=== PATIENT | male | born 1955 | race Caucasian/White ===

== ENCOUNTER 2024-05-07 14:44 | Emergency (ER) | payer OTHER ==
[2024-05-07 15:56] LABS: O2 DELIVERY DEVICE ROOM AIR
[2024-05-07 15:59] LABS: BICARBONATE,VENOUS 32 mmol/l (19-25); O2 SATURATION VENOUS 80.7 % (60-80); PCO2 VENOUS 52 mmHg (41-51); PO2 VENOUS 49 mmHg (35-42)
[2024-05-07 16:00] LABS: BASE EXCESS VENOUS 5.9 mmol/l ((-2)-(+3)); BASOPHILS PERCENT AUTO 0.3 % (0.0-1.0); EOSINOPHILS PERCENT AUTO 0.4 % (1.0-3.0); HEMATOCRIT 43.1 % (40.0-54.0); HEMOGLOBIN 13.2 g/dL (14.0-18.0); LYMPHOCYTES PERCENT AUTO 7.3 % (20.5-50.1); MEAN CORPUSCULAR HEMOGLOBIN 24.5 pg (27.0-34.0); MEAN CORPUSCULAR HGB CONC 30.6 g/dL (33.0-35.0); MONOCYTES PERCENT AUTO 15.5 % (2-8); NEUTROPHILS PERCENT AUTO 76.5 % (42.2-75.2); PLATELET COUNT,PLT 286 10^3/uL (150-450); RED BLOOD CELL COUNT 5.39 10^6/uL (4.6-6.2); WHITE BLOOD CELL COUNT,WBC 12.1 10^3/uL (5.0-10.0)
[2024-05-07 16:24] LABS: ALBUMIN 2.1 g/dL (3.4-5.0); BILIRUBIN TOTAL 2.6 mg/dL (0.2-1.0); BUN/CREATININE RATIO 27.9 (No establ ref range); CALCIUM 12.9 mg/dL (8.5-10.1); CREATININE 1.11 mg/dL (0.70-1.30); EST CRCL DRUG DOSING (CG) 67.84 mL/min; MAGNESIUM 1.6 mg/dL (1.8-2.4); PROTEIN TOTAL,TP 7.5 g/dL (6.4-8.2)
[2024-05-07 16:25] LABS: PROTHROMBIN TIME 19.9 SEC (9.0-12.0); PTT,PARTIAL THROMBOPLSTIN TIME 26.3 SEC (22.0-34.0)
[2024-05-07 16:28] LABS: LACTIC ACID 1.8 mmol/L (0.4-2.0)
[2024-05-07 16:30] LABS: A/G RATIO 0.39
[2024-05-07] MEDS: cefTRIAXone 2 GM in Sodium Chloride 0.9% 100 ML IV ONE (17:13)
[2024-05-07] MEDS: Sodium Chloride 0.9% 1,000 ML IV ONE (17:13)
[2024-05-07] MEDS: Magnesium Sulfate/Water 2 GM in Premix Bag 1 BAG IV ONE (17:42)
[2024-05-07 18:37] LABS: BENZODIAZEPINE,URINE NEGATIVE (NEGATIVE); MDMA (ECSTASY), URINE NEGATIVE (NEGATIVE); METHADONE,URINE NEGATIVE (NEGATIVE); METHAMPHETAMINES,URINE NEGATIVE (NEGATIVE); OPIATES,URINE NEGATIVE (NEGATIVE)
[2024-05-07 18:38] LABS: AMPHETAMINES,URINE NEGATIVE (NEGATIVE); APPEARANCE,URINE CLEAR (CLEAR); BARBITURATES,URINE NEGATIVE (NEGATIVE); BILIRUBIN,URINE MODERATE (NEGATIVE); COLOR,URINE DARK YELLOW (YELLOW); GLUCOSE,URINE 100 (NEGATIVE); KETONES,URINE 15 (NEGATIVE); LEUKOCYTE ESTERASE,URINE NEGATIVE (NEGATIVE); NITRITE,URINE NEGATIVE (NEGATIVE); OCCULT BLOOD,URINE NEGATIVE (NEGATIVE); OXYCODONE,URINE NEGATIVE (NEGATIVE); PH,URINE 5.5 (5.0-9.0); PHENCYCLIDINE,URINE NEGATIVE (NEGATIVE); PROTEIN,URINE NEGATIVE (NEGATIVE); TCA,URINE NEGATIVE (NEGATIVE)
[2024-05-07] MEDS: Dexamethasone 4 MG/ML SDV IVPUSH ONE (19:42)
[2024-05-07] MEDS: fentaNYL 100 MCG/2 ML SDV IVPUSH ONE ×2 (19:44→20:46)
[2024-05-07] MEDS: Sodium Chloride 0.9% 10 ML Syringe FLUSH PRN (19:46)
== END 2024-05-07 21:05 ==
LOC: DL.ED 14:44
DX: S22.059A Unspecified fracture of T5-T6 vertebra, initial encounter for closed fracture (principal); C22.9 Malignant neoplasm of liver, not specified as primary or secondary; C79.51 Secondary malignant neoplasm of bone; G95.89 Other specified diseases of spinal cord; G93.40 Encephalopathy, unspecified; R79.1 Abnormal coagulation profile; E78.00 Pure hypercholesterolemia, unspecified; I10 Essential (primary) hypertension; J44.9 Chronic obstructive pulmonary disease, unspecified; E11.9 Type 2 diabetes mellitus without complications; Z95.0 Presence of cardiac pacemaker; Z87.891 Personal history of nicotine dependence; Z79.82 Long term (current) use of aspirin; Z79.4 Long term (current) use of insulin; Z79.899 Other long term (current) drug therapy
CPT/HCPCS: 36415; 70450; 71045; 72125; 72128; 72131; 80053; 80305; 81003; 82140; 82248; 82803; 83605; 83735; 84484; 85025; 85610; 85730; 87040; 93005; 93010; 94762; 96361; 96365; 96367; 96375; 99285; J0696; J1100; J3010; J3475; J3490; J7030